=== PATIENT | female | born 1990 | race African-American/Black ===

== ENCOUNTER 2016-04-13 14:31 | Emergency (ER) | payer MEDICAID ==
[2016-06-05] MEDS ORDERED: PREN1CAP7 PO (14:29)
[2016-06-05] MEDS ORDERED: ACYC400T PO (14:29)
[2016-06-05] MEDS ORDERED: TERC20CR VAGINAL (14:39)
[2016-07-03] MEDS ORDERED: FERRTAB2 PO (11:14)
== END 2016-04-13 14:40 | disposition left against medical advice (07) ==
LOC: NED 14:31
DX: R68.89 Other general symptoms and signs (principal)
CPT/HCPCS: 99281

== ENCOUNTER 2016-04-16 17:40 | Emergency (ER) | payer MEDICAID ==
[2016-04-16 17:42] VITALS: BP 109/64; PULSE 104; RESP 15; TEMP 98; O2SAT 98
--- NOTE | 2016-04-16 19:03 | PD ---
HPI Chief Complaint Vaginal discharge associated with severe burning and itching Date Seen: Apr 16, 2016 Time Seen: 18:40 Travel History International Travel<30 Days: No Contact w/Intl Traveler<30Days: No Known Affected Area: No History of Present Illness HPI 25-year-old at 25 weeks and 3 days of gestation, EDC 07/27/16, patient presents to OB ED with complaint of vaginal discharge associated severe vaginal burning and itching for the last 3 days, patient denies cramping, contractions, vaginal bleeding and leakage of fluids. Patient reports presence of movement. Patient is unassigned, care is in [facility], patient just relocated to [facility] recently. care is significant for history of section 4 and twin gestation previous . A vaginal exam shows copious amount of whitish cottage cheese-like discharge consistent with yeast infection. Specimen is sent for wet prep profile. Para: 3 : 4 Miscarriage: 0 : 0 History Past Medical History Narrative Medical Denies Medical History: Denies Significant Hx Obstetric History Obstetric History delivery 3, twin 1 delivered Past Surgical History Narrative Surgical section 3, twin 1 delivered. Family History Narrative Family History Unremarkable Social History Alcohol Use: No Tobacco Use: Yes (ex-smoker, patient stated that she used to smoke marijuana) Substance Abuse: No Allergies-Medications (Allergen,Severity, Reaction): Coded Allergies: Tramadol (Verified Allergy, Unknown, hives, 04/16/16) Review of Systems Except as stated in HPI: all other systems reviewed are Neg Genitourinary: Discharge, Other (vaginal burning ,discharge and itching) Physical Exam Narrative GENERAL: Well-nourished, well-developed patient. SKIN: Warm and dry. HEAD: Normocephalic and atraumatic. EYES: No scleral icterus. No injection or drainage. ENT: No nasal drainage noted. Mucous membranes pink. Airway patent. NECK: Supple, trachea midline. No JVD. CARDIOVASCULAR: Regular rate and rhythm without murmurs, gallops, or rubs. RESPIRATORY: Breath sounds equal bilaterally. No accessory muscle use. BREASTS: Bilateral exam showed no masses , no retractions, no nipple discharge. ABDOMEN/GI: Abdomen soft, gravid, non-tender, bowel sounds present, no rebound, no guarding Gravid to 25 weeks size Fundal Height: 25 cm GENITOURINARY: External Genitalia: intact and normal in appearance BUS glands: Normal Cervix: Closed, long, posterior. There is copious amount of whitish cottage cheese-like vaginal discharge consistent with yeast infection. Specimen is sent for wet prep profile Dilatation: Closed Effacement: 30% Station: -3 Presentation: Cephalic Membranes: Intact Uterine Contractions: None FHT's: Category: one Baseline: 140s Reactive: Yes Variability: Moderate Decels: None EXTREMITIES: No cyanosis or edema. BACK: Nontender without obvious deformity. No CVA tenderness. NEUROLOGICAL: Awake and alert. Motor and sensory grossly within normal limits. Five out of 5 muscle strength in all muscle groups. Normal speech. Data Data Vital Signs Reviewed: Yes Orders Urinalysis - C+S If Indicated (04/16/16 18:20) Vital Signs (Adult) .ON ADMISSION (04/16/16 18:48) ^ Labor Status (04/16/16 18:48) ^ Non Stress Test (04/16/16 18:48) ^ Hydration (04/16/16 18:48) Wet Prep Profile (04/16/16 18:48) Miconazole Vag Supp (Monistat 3 Vag Supp (04/16/16 21:00) MDM Medical Record Reviewed: Yes Diagnosis Diagnosis: Primary Impression: 25 weeks gestation of Additional Impression: Candidal vulvovaginitis Disposition: 01 DISCHARGE HOME Condition: Stable Patient Instructions: General Instructions Additional Instructions: Patient is given miconazole vaginal suppository 200 milligrams to use intravaginally at bedtime 3 days. Patient is instructed to return to labor and delivery if increased symptoms, cramping, contractions, vaginal bleeding, leakage of fluids or decreased movements. Drink plenty of fluids. Monitor kick counts. Patient is given instructions on how to contact the office of care for women for continuation of her care. Pelvic rest. Departure Forms: Tests/Procedures Tyrel Mna MD Apr 16, 2016 19:03
[2016-04-16 19:19] LABS: BLOOD, URINE NEG (NEG); CALCIUM OXALATE CRYSTALS,URINE MOD /hpf; COMMENT (UR) CULT NOT INDICATED; CULTURE IF INDICATED CULT NOT INDICATED; GLUCOSE,URINE NEG (NEG); KETONE, URINE NEG (NEG); MUCUS URINE FEW /lpf (OCC); NITRITE,URINE NEG (NEG); PH, URINE 6.5 (5.0-8.5); SQUAMOUS EPITHELIAL CELL URINE 1 /hpf (0-5); URINE COLOR YELLOW (YELLW/STRAW)
[2016-04-16] MEDS ORDERED: TERCONAZOLE 80 MG VAGINAL SCH (21:00)
[2016-06-05] MEDS ORDERED: PREN1CAP7 PO (14:29)
[2016-06-05] MEDS ORDERED: ACYC400T PO (14:29)
[2016-06-05] MEDS ORDERED: TERC20CR VAGINAL (14:39)
[2016-07-03] MEDS ORDERED: FERRTAB2 PO (11:14)
== END 2016-04-16 20:04 | disposition home or self-care (01) ==
LOC: HOBED 17:40
DX: O98.812 Other maternal infectious and parasitic diseases complicating pregnancy, second trimester (principal); B37.3 Candidiasis of vulva and vagina; Z3A.25 25 weeks gestation of pregnancy
CPT/HCPCS: 81001; 87210; 99283

== ENCOUNTER 2016-09-29 07:37 | Observation (INO) | payer MEDICAID ==
[~2016-09-29] VITALS: Ht 165.1 cm; Wt 109.0 kg
[2016-09-29] VITALS (7 sets, daily range): BP systolic 93–132; BP diastolic 51–84; PULSE 76–100; RESP 16–20; TEMP 96.9–98.4; O2SAT 96–99
[~2016-09-29 07:37] MED LIST: ACYC400T PO; FERRTAB2 PO; PREN1CAP7 PO
[2016-09-29] MEDS ORDERED: SODIUM CHLOR 0.9% 1000 ML INJ 1,000 ML IV SCH (07:47)
--- NOTE | 2016-09-29 07:54 | PD ---
HPI Chief Complaint: Abdominal Pain Time Seen by Provider: 07:45 Travel History International Travel<30 days: No Contact w/Intl Traveler<30days: No Traveled to known affect area: No History of Present Illness HPI 25-year-old female complains of right upper quadrant abdominal pain and nausea vomiting. Patient states the symptoms started last night. Patient states that the pain is combination of cramping pain and sharp pain started at the right upper quadrant of the abdomen with radiation to right flank area. Patient has history of gallstone. Patient had gallbladder ultrasound and ERCP in the past in [place]. Patient refused surgery in the past. Patient states that she has intermittent symptoms for the past year. Patient denies any fever chills. Patient denies any headache. Patient denies any chest pain or shortness of breath. Patient denies any dysuria or frequency. Patient denies any vaginal discharge or bleeding. On a scale of 1-10 the pain is a 10. PFSH Past Medical History ?: Not LMP: 3 weeks ago Social History Alcohol Use: No Tobacco Use: No (ex-smoker, patient stated that she used to smoke marijuana) Substance Use: No Allergies-Medications (Allergen,Severity, Reaction): Coded Allergies: Morphine (Verified Allergy, Intermediate, Itching, 09/29/16) Tramadol (Verified Allergy, Unknown, hives, 07/13/16) Reported Meds & Prescriptions Reported Meds & Active Scripts Active No Active Prescriptions or Reported Medications Review of Systems General / Constitutional: No: Fever Eyes: No: Visual changes HENT: No: Headaches Cardiovascular: No: Chest Pain or Discomfort Respiratory: No: Shortness of Breath Gastrointestinal: Positive: Nausea, Vomiting, Abdominal Pain Genitourinary: No: Dysuria Musculoskeletal: No: Pain Skin: No Rash Neurologic: No: Weakness Psychiatric: No: Depression Endocrine: No: Polydipsia Hematologic/Lymphatic: No: Easy Bruising Physical Exam Narrative GENERAL: Well-nourished, well-developed patient. SKIN: Focused skin assessment warm/dry. HEAD: Normocephalic. EYES: No scleral icterus. No injection or drainage. NECK: Supple, trachea midline. No JVD or lymphadenopathy. CARDIOVASCULAR: Regular rate and rhythm without murmurs, gallops, or rubs. RESPIRATORY: Breath sounds equal bilaterally. No accessory muscle use. GASTROINTESTINAL: Abdomen soft, nondistended. Patient has moderate tenderness on palpation right upper quadrant of the abdomen. No rebound tenderness. No mass. MUSCULOSKELETAL: No cyanosis, or edema. BACK: Nontender without obvious deformity. No CVA tenderness. Neurologic exam normal. Data Data Last Documented VS Vital Signs Date Time Temp Pulse Resp B/P Pulse Ox O2 Delivery O2 Flow Rate FiO2 09/29/16 08:10 20 09/29/16 07:57 99 09/29/16 07:43 98.4 96 132/84 Orders Complete Blood Count With Diff (09/29/16 07:47) Comprehensive Metabolic Panel (09/29/16 07:47) Lipase (09/29/16 07:47) Prothrombin Time / Inr (Pt) (09/29/16 07:47) Act Partial Throm Time (Ptt) (09/29/16 07:47) Urinalysis - C+S If Indicated (09/29/16 07:47) Iv Access Insert/Monitor (09/29/16 07:47) Ecg Monitoring (09/29/16 07:47) Oximetry (09/29/16 07:47) Morphine Inj (Morphine Inj) (09/29/16 08:00) Ondansetron Inj (Zofran Inj) (09/29/16 08:00) Pantoprazole Inj (Protonix Inj) (09/29/16 08:00) Sodium Chlor 0.9% 1000 Ml Inj (Ns 1000 M (09/29/16 07:47) Ed Urine Pregnancytest Poc (09/29/16 07:47) Us Abdomen Gallbladder (09/29/16 07:48) Diphenhydramine Inj (Benadryl Inj) (09/29/16 08:15) Hydromorphone Pf Inj (Dilaudid Pf Inj) (09/29/16 08:45) Admit Order (Ed Use Only) (09/29/16 08:48) Labs Laboratory Tests Test 09/29/16 09/29/16 08:00 08:40 White Blood Count 6.8 TH/MM3 Red Blood Count 4.57 MIL/MM3 Hemoglobin 10.7 GM/DL Hematocrit 33.3 % Mean Corpuscular Volume 72.8 FL Mean Corpuscular Hemoglobin 23.4 PG Mean Corpuscular Hemoglobin 32.2 % Concent Red Cell Distribution Width 18.0 % Platelet Count 334 TH/MM3 Mean Platelet Volume 7.6 FL Neutrophils (%) (Auto) 52.1 % Lymphocytes (%) (Auto) 37.1 % Monocytes (%) (Auto) 6.2 % Eosinophils (%) (Auto) 4.3 % Basophils (%) (Auto) 0.3 % Neutrophils # (Auto) 3.6 TH/MM3 Lymphocytes # (Auto) 2.5 TH/MM3 Monocytes # (Auto) 0.4 TH/MM3 Eosinophils # (Auto) 0.3 TH/MM3 Basophils # (Auto) 0.0 TH/MM3 CBC Comment DIFF FINAL Differential Comment Prothrombin Time 9.9 SEC Prothromb Time International 0.9 RATIO Ratio Activated Partial 26.8 SEC Thromboplast Time Sodium Level 138 MEQ/L Potassium Level 3.7 MEQ/L Chloride Level 106 MEQ/L Carbon Dioxide Level 25.1 MEQ/L Anion Gap 7 MEQ/L Blood Urea Nitrogen 9 MG/DL Creatinine 0.69 MG/DL Estimat Glomerular Filtration 128 ML/MIN Rate Random Glucose 99 MG/DL Calcium Level 8.8 MG/DL Total Bilirubin 0.4 MG/DL Aspartate Amino Transf 31 U/L (AST/SGOT) Alanine Aminotransferase 34 U/L (ALT/SGPT) Alkaline Phosphatase 90 U/L Total Protein 7.0 GM/DL Albumin 3.3 GM/DL Lipase 65 U/L Urine Color LIGHT-YELLOW Urine Turbidity CLEAR Urine pH 6.5 Urine Specific [employer] 1.006 Urine Protein NEG mg/dL Urine Glucose (UA) NEG mg/dL Urine Ketones NEG mg/dL Urine Occult Blood NEG Urine Nitrite NEG Urine Bilirubin NEG Urine Urobilinogen LESS THAN 2.0 MG/DL Urine Leukocyte Esterase NEG Urine RBC LESS THAN 1 /hpf Urine WBC 1 /hpf Urine Squamous Epithelial 7 /hpf Cells Urine Mucus FEW /lpf Microscopic Urinalysis Comment CULT NOT INDICATED MDM Medical Decision Making Medical Screen Exam Complete: Yes Emergency Medical Condition: Yes Differential Diagnosis Differential diagnosis including acute cholecystitis, symptomatic cholelithiasis , colitis, UTI, pyelonephritis, nephrolithiasis. Narrative Course 25-year-old female with right upper quadrant abdominal pain, nausea vomiting and history of gallstone. Normal saline solution 1 25 cc an hour. Morphine 2 mg IV. Zofran 4 mg IV. Protonix 40 mg IV. Patient complains of itching after morphine. Benadryl 50 mg IV given. The itching got better and came back again. Solu-Medrol 125 mg IV. Pepcid 20 mg IV given. Diagnosis Primary Impression: Cholelithiasis Qualified Code: K80.20 - Calculus of gallbladder without cholecystitis without obstruction Additional Impression: Biliary colic Admitting Information Admitting Physician Requests: Admit Scripts No Active Prescriptions or Reported Meds Kain Robert MD Sep 29, 2016 07:54
[2016-09-29] MEDS ORDERED: PANTOPRAZOLE SODIUM 40 MG VIAL IVP ONE (08:00)
[2016-09-29] MEDS ORDERED: MORPHINE SULFATE 4 MG/ML INJ IV PUSH ONE (08:00)
[2016-09-29] MEDS ORDERED: ONDANSETRON HCL 4 MG/2 ML VIAL IVP ONE (08:00)
[2016-09-29] MEDS ORDERED: diphenhydrAMINE HCL 50 MG/ML VIAL IV PUSH ONE (08:15)
[2016-09-29 08:16] LABS: AUTOMATED NEUTROPHIL # 3.6 TH/MM3 (1.8-7.7); BASOPHIL % 0.3 % (0.0-2.0); EOSINOPHIL # 0.3 TH/MM3 (0-0.4); EOSINOPHIL % 4.3 % (0.0-4.0); HEMATOCRIT 33.3 % (35.0-46.0); HEMO FLAGS DIFF FINAL; LYMPH % 37.1 % (9.0-44.0); LYMPHOCYTE # 2.5 TH/MM3 (1.0-4.8); MEAN CELL VOLUME 72.8 FL (80.0-100.0); MEAN CORPUSCULAR HEMOGLOBIN 23.4 PG (27.0-34.0); MEAN CORPUSCULAR HGB CONC 32.2 % (32.0-36.0); MONO % 6.2 % (0.0-8.0); NEUT % 52.1 % (16.0-70.0); PLATELET COUNT 334 TH/MM3 (150-450); RED BLOOD COUNT 4.57 MIL/MM3 (4.00-5.30); WHITE BLOOD COUNT 6.8 TH/MM3 (4.0-11.0)
[2016-09-29 08:22] LABS: APTT (PATIENT) 26.8 SEC (24.3-30.1); INTERNATIONAL NORMALIZED RATIO 0.9 RATIO; PROTHROMBIN TIME - PATIENT 9.9 SEC (9.8-11.6)
[2016-09-29 08:33] LABS: ANION GAP 7 MEQ/L (5-15); BICARBONATE 25.1 MEQ/L (21.0-32.0); BLOOD UREA NITROGEN 9 MG/DL (7-18); CHLORIDE 106 MEQ/L (98-107); GLOMERULAR FILTRATION RATE 128 ML/MIN (>89); POTASSIUM 3.7 MEQ/L (3.5-5.1); SODIUM (NA) 138 MEQ/L (136-145)
[2016-09-29 08:34] LABS: ALT (GPT) 34 U/L (10-53); AST (GOT) 31 U/L (15-37)
[2016-09-29 08:36] LABS: ALKALINE PHOSPHATASE 90 U/L (45-117); TOTAL BILIRUBIN ADULT 0.4 MG/DL (0.2-1.0)
[2016-09-29] MEDS ORDERED: HYDROmorphone HCL PF 1 MG/ML VIAL IV PUSH ONE ×2 (08:45→11:45)
[2016-09-29 08:57] LABS: BLOOD, URINE NEG (NEG); COMMENT (UR) CULT NOT INDICATED; CULTURE IF INDICATED CULT NOT INDICATED; GLUCOSE,URINE NEG (NEG); KETONE, URINE NEG (NEG); MUCUS URINE FEW /lpf (OCC); NITRITE,URINE NEG (NEG); PH, URINE 6.5 (5.0-8.5); SQUAMOUS EPITHELIAL CELL URINE 7 /hpf (0-5); URINE COLOR LIGHT-YELLOW (YELLW/STRAW)
--- NOTE | 2016-09-29 09:00 | RADRPT ---
EXAM DATE/TIME: 09/29/2016 07:56 [facility] COMPARISON: No previous studies available for comparison. INDICATIONS : Right upper quadrant pain. MEDICAL HISTORY : Abdominal pain. SURGICAL HISTORY : section. ENCOUNTER: Initial ACUITY: 1 day PAIN SCORE: 10/10 LOCATION: Right upper quadrant MEASUREMENTS: LIVER: 15.3 cm length COMMON DUCT: 4 mm RIGHT KIDNEY: 11.0 x 5.4 x 4.9 cm FINDINGS: LIVER: Normal echotexture without focal lesion or ductal dilatation. The portal system is patent. No evidenc e of ascites. COMMON DUCT: No intraluminal mass or stone visualized. GALLBLADDER: Multiple stones are seen in the gallbladder. No gallbladder wall thickening. No fluid around the gall bladder. There is some sludge in the gallbladder. PANCREAS: The visualized portions are within normal limits. RIGHT KIDNEY: No evidence of hydronephrosis, stone, or mass. CONCLUSION: 1. Multiple stones in the gallbladder. 2. No biliary tract obstruction. Phu Romano MD on September 29, 2016 at 8:58 Board Certified Radiologist. This report was verified electronically.
[2016-09-29] MEDS ORDERED: SODIUM CHLORIDE 0.9% FLUSH 10 ML FLUSH IV FLUSH PRN ×2 (09:15→15:30)
[2016-09-29] MEDS ORDERED: FAMOTIDINE 20 MG/2 ML VIAL IV PUSH ONE (09:15)
[2016-09-29] MEDS ORDERED: methylPREDNISolone SOD SUCC 125 MG/2 ML VIAL IM ONE (09:15)
[2016-09-29] MEDS ORDERED: ceFAZolin 2 GM PREMIX 50 ML IV SCH (10:45)
[2016-09-29] MEDS ORDERED: ONDANSETRON HCL 4 MG/2 ML VIAL IV PRN (11:45)
[2016-09-29] MEDS ORDERED: SODIUM CHLORIDE 0.9% FLUSH 10 ML FLUSH IVF PRN (11:45)
[2016-09-29] MEDS ORDERED: ACETAMINOPHEN 325 MG TAB PO PRN (11:45)
[2016-09-29] MEDS: diphenhydrAMINE HCL 50 MG/ML VIAL IV PRN ×2 (13:37→19:48)
[2016-09-29] MEDS ORDERED: HYDROmorphone HCL PF 1 MG/ML VIAL IV PRN ×2 (13:45→15:00)
[2016-09-29] MEDS ORDERED: METOCLOPRAMIDE HCL 10 MG/2 ML VIAL IV PRN (15:30)
[2016-09-29] MEDS ORDERED: SCOPOLAMINE 1.5 MG PATCH T-DERMAL ONE (15:30)
[2016-09-29] MEDS ORDERED: metroNIDAZOLE 500 MG INJ 100 ML IV SCH ×2 (17:45→18:00)
[2016-09-29] MEDS: SODIUM CHLOR 0.9% 1000 ML INJ 1,000 ML IV SCH ×2 (17:54→23:51)
[2016-09-29] MEDS: ceFAZolin 2 GM PREMIX 50 ML IV SCH (17:54)
[2016-09-29] MEDS ORDERED: ACETAMINOPHEN 1000 MG/100 ML VIAL IV SCH (18:00)
[2016-09-29] MEDS ORDERED: PANTOPRAZOLE SODIUM 40 MG VIAL IV SCH (18:00)
[2016-09-29] MEDS: metroNIDAZOLE 500 MG INJ 100 ML IV SCH (19:50)
[2016-09-29] MEDS: URSODIOL 300 MG CAP PO SCH ×2 (19:50→21:41)
[2016-09-29] MEDS: ACETAMINOPHEN 1000 MG/100 ML VIAL IV SCH ×2 (19:50→23:51)
[2016-09-29] MEDS: HYDROmorphone HCL PF 1 MG/ML VIAL IV PUSH PRN ×2 (19:52→23:42)
[2016-09-29] MEDS ORDERED: SODIUM CHLORIDE 0.9% FLUSH 10 ML FLUSH IV FLUSH SCH ×2 (21:00)
[2016-09-30] VITALS: BP 104/63; PULSE 79; RESP 18; TEMP 97.5; O2SAT 98
[2016-09-30] MEDS: ceFAZolin 2 GM PREMIX 50 ML IV SCH (01:41)
[2016-09-30] MEDS: metroNIDAZOLE 500 MG INJ 100 ML IV SCH (03:00)
[2016-09-30] MEDS: ACETAMINOPHEN 1000 MG/100 ML VIAL IV SCH (05:11)
[2016-09-30] MEDS: diphenhydrAMINE HCL 50 MG/ML VIAL IV PRN (05:12)
[2016-09-30] MEDS: HYDROmorphone HCL PF 1 MG/ML VIAL IV PUSH PRN (05:12)
--- NOTE | 2016-09-30 07:04 | HHI.PR ---
Subjective Subjective Notes no acute issue, pain 4/10 with meds no vomiting Objective Vitals/I&O Vital Signs Date Time Temp Pulse Resp B/P Pulse Ox O2 Delivery O2 Flow Rate FiO2 09/30/16 00:00 97.5 79 18 104/63 98 09/29/16 20:51 21 Labs Laboratory Tests Test 09/29/16 09/29/16 08:00 08:40 White Blood Count 6.8 Red Blood Count 4.57 Hemoglobin 10.7 Hematocrit 33.3 Mean Corpuscular Volume 72.8 Mean Corpuscular Hemoglobin 23.4 Mean Corpuscular Hemoglobin 32.2 Concent Red Cell Distribution Width 18.0 Platelet Count 334 Mean Platelet Volume 7.6 Neutrophils (%) (Auto) 52.1 Lymphocytes (%) (Auto) 37.1 Monocytes (%) (Auto) 6.2 Eosinophils (%) (Auto) 4.3 Basophils (%) (Auto) 0.3 Neutrophils # (Auto) 3.6 Lymphocytes # (Auto) 2.5 Monocytes # (Auto) 0.4 Eosinophils # (Auto) 0.3 Basophils # (Auto) 0.0 CBC Comment DIFF FINAL Differential Comment Prothrombin Time 9.9 Prothromb Time International 0.9 Ratio Activated Partial 26.8 Thromboplast Time Sodium Level 138 Potassium Level 3.7 Chloride Level 106 Carbon Dioxide Level 25.1 Anion Gap 7 Blood Urea Nitrogen 9 Creatinine 0.69 Estimat Glomerular Filtration 128 Rate Random Glucose 99 Calcium Level 8.8 Total Bilirubin 0.4 Aspartate Amino Transf 31 (AST/SGOT) Alanine Aminotransferase 34 (ALT/SGPT) Alkaline Phosphatase 90 Total Protein 7.0 Albumin 3.3 Lipase 65 Urine Color LIGHT-YELLOW Urine Turbidity CLEAR Urine pH 6.5 Urine Specific [place] 1.006 Urine Protein NEG Urine Glucose (UA) NEG Urine Ketones NEG Urine Occult Blood NEG Urine Nitrite NEG Urine Bilirubin NEG Urine Urobilinogen LESS THAN 2.0 Urine Leukocyte Esterase NEG Urine RBC LESS THAN 1 Urine WBC 1 Urine Squamous Epithelial 7 Cells Urine Mucus FEW Microscopic Urinalysis Comment CULT NOT INDICATED Cardiovascular: Regular Lungs: Clear Abdomen: Other (soft, mild ttp ruq) A/P Assessment and Plan symptomatic cholelithiasis hx of gb pancreatitis and cbd stone, no cbd stone this admission PLAN pt does not want surgery pain control actigal low fat diet oob d/c planning today f/u with Rishi Hendrix MD Sep 30, 2016 07:04
[2016-09-30] MEDS ORDERED: SCOP1PAT2 T-DERMAL (07:22)
[2016-09-30] MEDS ORDERED: PERC7.5T13 PO (07:22)
[2016-09-30] MEDS ORDERED: URSO300C2 PO (07:22)
[2016-09-30] MEDS: SODIUM CHLOR 0.9% 1000 ML INJ 1,000 ML IV SCH (07:23)
--- NOTE | 2016-09-30 21:05 | MH ---
cc: CHAO WEEMS MD DATE OF ADMISSION 09/29/2016 CHIEF COMPLAINT Right upper quadrant abdominal pain. HISTORY OF PRESENT ILLNESS The patient is a 25-year-old female who presents with complaints of right upper quadrant abdominal pain. She states the pain started a few days ago and continued getting worse. The pain was initially located in the right upper quadrant in the epigastric area. It was sharp, it was 10/10, worse with movement, better with lying still. She came to the emergency department for further workup including ultrasound showing multiple gallstones in the gallbladder. Labs within normal limits. Surgery was consulted for further evaluation. On my exam the patient has relatively severe abdominal pain. The patient states that this has been persistent. She does have a previous history of gallstone pancreatitis requiring ERCP in [place] approximately one year ago and states this pain has recurred now since then. She states this episode is the worse, however, the epigastric pain is not as severe and there is no evidence of pancreatitis on this episode or common bile duct stone. At the time she refused laparoscopic cholecystectomy based on [employer] purposes. The patient does practice [employer] and states she is now wishing to have surgery. The patient complains of subjective fevers. Denies chills. Denies diarrhea or constipation. PAST MEDICAL HISTORY Gallstone pancreatitis. PAST SURGICAL HISTORY Denies any major abdominal surgery. MEDICATIONS See EMR. ALLERGIES MORPHINE, TRAMADOL, ZOFRAN. SOCIAL HISTORY Denies EtOH. Former smoker. History of THC. Denies current smoking. Denies IVDA. FAMILY HISTORY Denies diabetes or hypertension. REVIEW OF SYSTEMS GENERAL: Complains of subjective fevers. Denies malaise. HEENT: Denies eye pain, ear pain or scleral icterus. NECK: Denies swelling or pain. RESPIRATORY: Denies cough or wheeze. GI: Denies vomiting. Complains of nausea and abdominal pain. CARDIOVASCULAR: Denies chest pain or palpitations. : Denies dysuria, hematuria. ENDOCRINE: Denies polyuria, polydipsia. NEUROLOGIC: Denies weakness or numbness. PSYCH: Denies depression or change in mood. PHYSICAL EXAMINATION GENERAL: The patient no acute distress. VITAL SIGNS: Temperature 98.4, pulse 96, respirations 20, blood pressure 132/84, saturation 99% on room air. HEENT: PERRLA, pupils equal, round, reactive. No scleral icterus. NECK: Supple. Trachea midline. LUNGS: Bilateral expansion, clear. HEART: S1-S2 regular rhythm. ABDOMEN: Soft, positive tenderness to palpation right upper quadrant. No rebound. Positive guarding. EXTREMITIES: Warm, well-perfused. INTEGUMENT: No obvious masses or lesions. BACK: Normal curvature. No step-off. PSYCH: Good insight, good judgment. LABORATORY AND DIAGNOSTIC DATA WBC 6.8, hemoglobin 10.7, hematocrit 33.3, platelets 334. Sodium 138, potassium 3.7, chloride 106, BUN 9, creatinine 0.69, AST 31, ALT 34, T bili 0.4. INR 0.9. The gallbladder ultrasound significant amount of gallstones. No evidence of biliary common duct dilation or common duct stones. ASSESSMENT The patient is a 25-year-old female with right upper quadrant pain, symptomatic cholelithiasis, previous hx of gallstone pancreatitis. Patient refusing surgery due to practices [facility]. PLAN Full clinical, radiologic, laboratory workup. The patient with right upper quadrant pain consistent with symptomatic cholelithiasis. A long discussion with the patient regarding the need for laparoscopic cholecystectomy. Given the patient's previous history of gallstone pancreatitis she is at risk for recurrent common bile duct stones. I recommend undergoing laparoscopic cholecystectomy. The patient does have severe significant pain that is only partially controlled with IV pain medication. She has a normal lipase and normal LFTs and T-bili as well. The patient at this time has significant symptomatic cholelithiasis. At this point we will admit the patient for observation, pain control, IV fluids. Will start low-fat diet when able to tolerate. Again, discussed with the patient in detail. MD DALE Pascal/YORDY /8:31 PM /8:44 PM LINDA
== END 2016-09-30 08:51 | disposition home or self-care (01) ==
LOC: NEPC 07:37 → INTOOBSV 08:50 → NEDA 08:50 → N07A 12:26 → UNDODISIN 09-30 08:51
PROVIDERS: ADMIT Surgery; ATTEND Surgery
DX: K80.20 Calculus of gallbladder without cholecystitis without obstruction (principal); R50.9 Fever, unspecified; Z87.891 Personal history of nicotine dependence
CPT/HCPCS: 76705; 80053; 81001; 83690; 84703; 85025; 85610; 85730; 96361; 96374; 96375; 99285; C9113; G0378; J0131; J0690; J1170; J1200; J2270; J2405; J2930; J7030

== ENCOUNTER 2016-10-11 20:31 | Observation (INO) | payer MEDICAID ==
[~2016-10-11] VITALS: Ht 165.1 cm; Wt 100.0 kg
[~2016-10-11 20:31] MED LIST changes: -ACYC400T PO; -FERRTAB2 PO; +PERC7.5T13 PO; -PREN1CAP7 PO; +SCOP1PAT2 T-DERMAL; +URSO300C2 PO
[2016-10-11 20:54] VITALS: BP 150/87; PULSE 110; RESP 18; TEMP 98.6; O2SAT 95
[2016-10-11] MEDS ORDERED: SODIUM CHLOR 0.9% 1000 ML INJ 1,000 ML IV SCH (21:35)
[2016-10-11] MEDS ORDERED: LIDOCAINE VISCOUS 2% SOLN 15 ML UDC PO ONE (21:45)
[2016-10-11] MEDS ORDERED: ONDANSETRON HCL 4 MG/2 ML VIAL IVP ONE (21:45)
[2016-10-11] MEDS ORDERED: SODIUM CHLORIDE 0.9% FLUSH 10 ML FLUSH IV FLUSH PRN (21:45)
[2016-10-11] MEDS ORDERED: KETOROLAC TROMETHAMINE 30 MG/ML (IVP) VIAL IVP ONE (21:45)
[2016-10-11] MEDS ORDERED: ALUMINUM/MAGNESIUM/SIMETH 30 ML CUP PO ONE (21:45)
[2016-10-11 22:17] VITALS: TEMP 97.9
[2016-10-11 22:19] LABS: AUTOMATED NEUTROPHIL # 7.4 TH/MM3 (1.8-7.7); BASOPHIL # 0.1 TH/MM3 (0-0.2); BASOPHIL % 0.7 % (0.0-2.0); EOSINOPHIL # 0.3 TH/MM3 (0-0.4); EOSINOPHIL % 2.4 % (0.0-4.0); HEMATOCRIT 33.8 % (35.0-46.0); HEMO FLAGS DIFF FINAL; LYMPH % 23.9 % (9.0-44.0); LYMPHOCYTE # 2.6 TH/MM3 (1.0-4.8); MEAN CELL VOLUME 75.2 FL (80.0-100.0); MEAN CORPUSCULAR HEMOGLOBIN 23.9 PG (27.0-34.0); MEAN CORPUSCULAR HGB CONC 31.7 % (32.0-36.0); MONO % 5.7 % (0.0-8.0); NEUT % 67.3 % (16.0-70.0); PLATELET COUNT 340 TH/MM3 (150-450); RED BLOOD COUNT 4.49 MIL/MM3 (4.00-5.30)
[2016-10-11] MEDS ORDERED: HYDROmorphone HCL PF 1 MG/ML VIAL IV PUSH ONE (22:30)
[2016-10-11 22:35] LABS: ALKALINE PHOSPHATASE 85 U/L (45-117); BETA HCG QUANT LESS THAN 1 MIU/ML (0-5); TOTAL BILIRUBIN ADULT 0.3 MG/DL (0.2-1.0)
[2016-10-11 22:47] LABS: ALT (GPT) 28 U/L (10-53); ANION GAP 8 MEQ/L (5-15); AST (GOT) 28 U/L (15-37); BICARBONATE 25.5 MEQ/L (21.0-32.0); BLOOD UREA NITROGEN 8 MG/DL (7-18); CHLORIDE 108 MEQ/L (98-107); GLOMERULAR FILTRATION RATE 100 ML/MIN (>89); SODIUM (NA) 141 MEQ/L (136-145)
[2016-10-11] MEDS ORDERED: diphenhydrAMINE HCL 50 MG/ML VIAL IV PUSH ONE (23:15)
[2016-10-11 23:36] LABS: POTASSIUM 4.1 MEQ/L (3.5-5.1)
--- NOTE | 2016-10-11 23:50 | RADRPT ---
EXAM DATE/TIME: 10/11/2016 23:05 [facility] COMPARISON: US ABDOMEN - GALLBLADDER, September 29, 2016, 7:56. INDICATIONS : Abdominal pain. MEDICAL HISTORY : Gallstones. Gastrointestinal disorder. SURGICAL HISTORY : section. Tubal ligation. ERCP. ENCOUNTER: Initial ACUITY: 1 day PAIN SCORE: 7/10 LOCATION: Right upper quadrant MEASUREMENTS: LIVER: 15.0 cm length COMMON DUCT: 6 mm RIGHT KIDNEY: 9.0 x 4.6 x 4.4 cm FINDINGS: LIVER: Normal echotexture without focal lesion or ductal dilatation. COMMON DUCT: No intraluminal mass or stone visualized. GALLBLADDER: There is some echogenic and is in the gallbladder with gallbladder wall thickening measured at 5 mm. These findings are stable compared to the prior exam. No fluid is seen in the gallbladder. PANCREAS: The visualized portions are within normal limits. RIGHT KIDNEY: No evidence of hydronephrosis, stone, or mass. CONCLUSION: 1. Gallstones with gallbladder wall thickening characteristic of chronic gallbladder disease. 2. No evidence of biliary tract obstruction. 3. No significant changes compared to the prior study. Phu Romano MD on October 11, 2016 at 23:46 Board Certified Radiologist. This report was verified electronically.
[2016-10-12] VITALS (8 sets, daily range): BP systolic 91–103; BP diastolic 54–68; PULSE 74–90; RESP 16–18; TEMP 97.5–97.8; O2SAT 96–100
[2016-10-12 00:37] LABS: BLOOD, URINE NEG (NEG); COMMENT (UR) CULT NOT INDICATED; CULTURE IF INDICATED CULT NOT INDICATED; GLUCOSE,URINE NEG (NEG); HYALINE CAST, URINE 1 /lpf (RARE); KETONE, URINE NEG (NEG); MUCUS URINE FEW /lpf (OCC); NITRITE,URINE NEG (NEG); SQUAMOUS EPITHELIAL CELL URINE <1 /hpf (0-5); URINE COLOR YELLOW (YELLW/STRAW)
--- NOTE | 2016-10-12 00:38 | PD ---
HPI Chief Complaint: Abdominal Pain Time Seen by Provider: 21:35 Travel History International Travel<30 days: No Contact w/Intl Traveler<30days: No Traveled to known affect area: No History of Present Illness HPI Patient is 25 years old. Patient reports 5 hours of abdominal pain. It's primarily located in the right upper quadrant. It's worse with palpation. Vomiting and nausea reported. Last oral intake was a microwave burrito. No fever. She has a history of gallbladder stones. She was recently admitted for intractable pain due to cholelithiasis/biliary colic. PFSH Past Medical History Cancer: No Cardiovascular Problems: No Endocrine: No Gastrointestinal Disorders: Yes (GALLSTONES) Genitourinary: No Immune Disorder: No Musculoskeletal: No Neurologic: No Psychiatric: No Reproductive: No Respiratory: No Influenza Vaccination: Yes ?: Not LMP: SEPTEMBER 2016 : 3 Para: 5 Past Surgical History Section: Yes (X3) Gynecologic Surgery: Yes (c section x 4, tubes tied) Social History Alcohol Use: No Tobacco Use: No (ex-smoker, patient stated that she used to smoke marijuana) Substance Use: No Allergies-Medications (Allergen,Severity, Reaction): Coded Allergies: Zofran (Verified Allergy, Severe, Itching, 10/11/16) Morphine (Verified Allergy, Intermediate, Itching, 10/11/16) Tramadol (Verified Allergy, Unknown, hives, 10/11/16) Reported Meds & Prescriptions Reported Meds & Active Scripts Active No Active Prescriptions or Reported Medications Review of Systems Except as stated in HPI: all other systems reviewed are Neg Physical Exam Narrative GENERAL: 25-year-old female mild to moderate distress secondary to pain SKIN: Focused skin assessment warm/dry. HEAD: Atraumatic. Normocephalic. EYES: Pupils equal and round. No scleral icterus. No injection or drainage. ENT: No nasal bleeding or discharge. Mucous membranes pink and moist. NECK: Trachea midline. No JVD. CARDIOVASCULAR: Regular rate and rhythm. No murmur appreciated. RESPIRATORY: No accessory muscle use. Clear to auscultation. Breath sounds equal bilaterally. GASTROINTESTINAL: Soft. Tenderness palpation right upper quadrant. MUSCULOSKELETAL: No obvious deformities. No clubbing. No cyanosis. No edema. NEUROLOGICAL: Awake and alert. No obvious cranial nerve deficits. Motor grossly within normal limits. Normal speech. PSYCHIATRIC: Appropriate mood and affect; insight and judgment normal. Data Data Last Documented VS Vital Signs Date Time Temp Pulse Resp B/P Pulse Ox O2 Delivery O2 Flow Rate FiO2 10/11/16 22:17 97.9 10/11/16 20:54 110 18 150/87 95 Room Air Vital signs reviewed Orders Beta Hcg (Quant/Titer) (10/11/16 21:35) Complete Blood Count With Diff (10/11/16 21:35) Comprehensive Metabolic Panel (10/11/16 21:35) Lipase (10/11/16 21:35) Urinalysis - C+S If Indicated (10/11/16 21:35) Iv Access Insert/Monitor (10/11/16 21:35) Ecg Monitoring (10/11/16 21:35) Oximetry (10/11/16 21:35) Ondansetron Inj (Zofran Inj) (10/11/16 21:45) Sodium Chlor 0.9% 1000 Ml Inj (Ns 1000 M (10/11/16 21:35) Sodium Chloride 0.9% Flush (Ns Flush) (10/11/16 21:45) Ketorolac Inj (Toradol Inj) (10/11/16 21:45) Al-Mag Hy-Si 40-40-4 Mg/Ml Liq (Mag-Al P (10/11/16 21:45) Lidocaine 2% Viscous (Xylocaine 2% Visco (10/11/16 21:45) Ed Urine Pregnancytest Poc (10/11/16 21:35) Us Abdomen Gallbladder (10/11/16 ) Hydromorphone Pf Inj (Dilaudid Pf Inj) (10/11/16 22:30) Diphenhydramine Inj (Benadryl Inj) (10/11/16 23:15) Hydromorphone Pf Inj (Dilaudid Pf Inj) (10/12/16 00:45) Admit Order (Ed Use Only) (10/12/16 00:48) Labs Laboratory Tests Test 10/11/16 10/12/16 21:42 00:10 White Blood Count 11.0 TH/MM3 Red Blood Count 4.49 MIL/MM3 Hemoglobin 10.7 GM/DL Hematocrit 33.8 % Mean Corpuscular Volume 75.2 FL Mean Corpuscular Hemoglobin 23.9 PG Mean Corpuscular Hemoglobin 31.7 % Concent Red Cell Distribution Width 18.0 % Platelet Count 340 TH/MM3 Mean Platelet Volume 8.3 FL Neutrophils (%) (Auto) 67.3 % Lymphocytes (%) (Auto) 23.9 % Monocytes (%) (Auto) 5.7 % Eosinophils (%) (Auto) 2.4 % Basophils (%) (Auto) 0.7 % Neutrophils # (Auto) 7.4 TH/MM3 Lymphocytes # (Auto) 2.6 TH/MM3 Monocytes # (Auto) 0.6 TH/MM3 Eosinophils # (Auto) 0.3 TH/MM3 Basophils # (Auto) 0.1 TH/MM3 CBC Comment DIFF FINAL Differential Comment Sodium Level 141 MEQ/L Potassium Level 4.1 MEQ/L Chloride Level 108 MEQ/L Carbon Dioxide Level 25.5 MEQ/L Anion Gap 8 MEQ/L Blood Urea Nitrogen 8 MG/DL Creatinine 0.85 MG/DL Estimat Glomerular Filtration 100 ML/MIN Rate Random Glucose 81 MG/DL Calcium Level 8.7 MG/DL Total Bilirubin 0.3 MG/DL Aspartate Amino Transf 28 U/L (AST/SGOT) Alanine Aminotransferase 28 U/L (ALT/SGPT) Alkaline Phosphatase 85 U/L Total Protein 7.0 GM/DL Albumin 3.2 GM/DL Lipase 80 U/L Human Chorionic Gonadotropin, LESS THAN 1 Quant MIU/ML Urine Color YELLOW Urine Turbidity CLEAR Urine pH 6.0 Urine Specific [place] 1.026 Urine Protein NEG mg/dL Urine Glucose (UA) NEG mg/dL Urine Ketones NEG mg/dL Urine Occult Blood NEG Urine Nitrite NEG Urine Bilirubin NEG Urine Urobilinogen LESS THAN 2.0 MG/DL Urine Leukocyte Esterase NEG Urine RBC 1 /hpf Urine WBC 2 /hpf Urine Squamous Epithelial <1 /hpf Cells Urine Hyaline Casts 1 /lpf Urine Mucus FEW /lpf Microscopic Urinalysis Comment CULT NOT INDICATED MDM Medical Decision Making Medical Screen Exam Complete: Yes Emergency Medical Condition: Yes Medical Record Reviewed: Yes Differential Diagnosis Constipation, Gastritis, Acute Cholecystitis, Biliary Colic, Pancreatitis, TAYLOR , Hepatitis, Bowel Obstruction, Cystitis, Mesenteric Ischemia, AAA, Appendicitis , Renal Stone/Hydronephrosis, GERD, perforated viscous Narrative Course CBC & BMP Diagram 10/11/16 21:42 LFTs normal Lipase normal Beta hCG less than 1 Right upper quadrant ultrasound reveals gallstones with gallbladder wall thickening characteristic of chronic gallbladder disease. There is no evidence of biliary tract obstruction. No significant change in comparison with a prior study. Patient has received Dilaudid with good effect. Patient required Benadryl for itching shortly thereafter. Last 24 hours Impressions Gall Bladder Ultrasound 10/11/16 0000 Signed Impressions: Service Date/Time: Tuesday, October 11, 2016 23:05 - CONCLUSION: 1. Gallstones with gallbladder wall thickening characteristic of chronic gallbladder disease. 2. No evidence of biliary tract obstruction. 3. No significant changes compared to the prior study. Phu Romano MD This case was discussed with Dr. Ji who is agreeable for admission discussion about possible surgical intervention. Patient agreeable to plan. Diagnosis Primary Impression: Cholelithiasis Qualified Code: K80.20 - Calculus of gallbladder without cholecystitis without obstruction Additional Impressions: Biliary colic Intractable abdominal pain Admitting Information Admitting Physician Requests: Observation Scripts No Active Prescriptions or Reported Meds Jamaal Oh MD Oct 12, 2016 00:38
[2016-10-12] MEDS ORDERED: HYDROmorphone HCL PF 1 MG/ML VIAL IV PUSH ONE (00:45)
[2016-10-12] MEDS ORDERED: diphenhydrAMINE HCL 50 MG/ML VIAL IV PUSH ONE ×2 (01:30→03:00)
[2016-10-12] MEDS ORDERED: SODIUM CHLORIDE 0.9% FLUSH 10 ML FLUSH IVF PRN (03:45)
[2016-10-12] MEDS: SODIUM CHLOR 0.9% 1000 ML INJ 1,000 ML IV SCH ×2 (04:08→11:18)
[2016-10-12] MEDS: HYDROmorphone HCL PF 1 MG/ML VIAL IV PRN ×3 (05:20→11:30)
[2016-10-12] MEDS: diphenhydrAMINE HCL 50 MG/ML VIAL IV PUSH PRN ×2 (05:51→11:29)
[2016-10-12] MEDS ORDERED: SODIUM CHLORIDE 0.9% FLUSH 10 ML FLUSH IV FLUSH SCH ×2 (09:00→21:00)
[2016-10-12] MEDS ORDERED: SODIUM CHLORIDE 0.9% FLUSH 10 ML FLUSH IV FLUSH PRN (10:00)
[2016-10-13] MEDS ORDERED: PANTOPRAZOLE SOD 40 MG DELAYED RELEASE TAB PO SCH (09:00)
== END 2016-10-12 16:32 | disposition home or self-care (01) ==
LOC: NEDAMB 20:31 → INTOOBSV 10-12 00:50 → NEDA 10-12 00:50 → NEPFCDU 10-12 04:21 → UNDODISIN 10-12 16:32
PROVIDERS: ADMIT Surgery; ATTEND Surgery
DX: K80.20 Calculus of gallbladder without cholecystitis without obstruction (principal)
CPT/HCPCS: 76705; 80053; 81001; 83690; 84702; 84703; 85025; 96365; 96375; 96376; 99285; G0378; J1170; J1200; J1885; J2405; J7030

== ENCOUNTER 2016-10-19 13:15 | Emergency (ER) | payer MEDICAID ==
[~2016-10-19] VITALS: Ht 165.1 cm; Wt 100.0 kg
[2016-10-19 13:23] VITALS: BP 144/77; PULSE 126; RESP 20; TEMP 98.6; O2SAT 100
--- NOTE | 2016-10-19 13:35 | PD ---
Physical Exam Time Seen by Provider: 13:34 Narrative 25 y/o female with known cholelithiasis, admitted twice this month for same, presents with RUQ abdominal pain which started today. Vital signs reviewed. Seen at triage desk. Awaiting bed placement. Data Data Last Documented VS Vital Signs Date Time Temp Pulse Resp B/P Pulse Ox O2 Delivery O2 Flow Rate FiO2 10/19/16 13:23 98.6 126 20 144/77 100 Room Air [facility] Medical Record Reviewed: Yes Supervised Visit with JORY: No Scripts No Active Prescriptions or Reported Meds Zak Eldridge Oct 19, 2016 13:35
--- NOTE | 2016-10-19 15:18 | PD ---
HPI . RUQ pain Chief Complaint: Abdominal Pain Time Seen by Provider: 15:15 Travel History International Travel<30 days: No Contact w/Intl Traveler<30days: No Traveled to known affect area: No History of Present Illness HPI 25-year-old female with history of cholelithiasis here with complaints of right upper quadrant pain since about 4:56 AM this morning. Patient tells me that she had a sudden onset of abdominal pain in the right upper quadrant that is radiating to her back. She admits to history of gallstones and tells me that she has an appointment with surgeon next week, however cannot wait until then. She rates the pain as 10/10. She admits to some nausea and tells me that she vomited once this morning. She has no other specific complaints. PFSH Past Medical History Cancer: No Cardiovascular Problems: No Cerebrovascular Accident: No Diminished Hearing: No Endocrine: No Gastrointestinal Disorders: Yes (GALLSTONES) Genitourinary: No Immune Disorder: No Kidney Stones: No Musculoskeletal: No Neurologic: No Psychiatric: No Reproductive: No Respiratory: No Migraines: No Renal Failure: Yes Seizures: No Tetanus Vaccination: > 5 Years Influenza Vaccination: Yes ?: Not LMP: 2 weeks ago : 3 Para: 5 Past Surgical History Abdominal Surgery: No Cardiac Surgery: No Section: Yes (X3) Ear Surgery: No Endocrine Surgery: No Eye Surgery: No Genitourinary Surgery: No Gynecologic Surgery: Yes ( x 3/tubal ligation) Oral Surgery: No Thoracic Surgery: No Other Surgery: Yes (ERCP) Social History Alcohol Use: No Tobacco Use: No Substance Use: No Allergies-Medications (Allergen,Severity, Reaction): Coded Allergies: Zofran (Verified Allergy, Severe, Itching, 10/19/16) Morphine (Verified Allergy, Intermediate, Itching, 10/19/16) Tramadol (Verified Allergy, Unknown, hives, 10/19/16) Reported Meds & Prescriptions Reported Meds & Active Scripts Active No Active Prescriptions or Reported Medications Review of Systems General / Constitutional: No: Fever Eyes: No: Visual changes HENT: No: Headaches Cardiovascular: No: Chest Pain or Discomfort Respiratory: No: Shortness of Breath Gastrointestinal: Positive: Nausea, Vomiting, Abdominal Pain Genitourinary: No: Dysuria Musculoskeletal: No: Pain Skin: No Rash Neurologic: No: Weakness Psychiatric: No: Depression Endocrine: No: Polydipsia Hematologic/Lymphatic: No: Easy Bruising Physical Exam Narrative GENERAL: AAO x 3, no acute distress, Well-nourished, well-developed patient. SKIN: Warm and dry. No visible rashes or bruising. HEAD: Normocephalic and atraumatic. EYES: No scleral icterus. No injection or drainage. EOM intact, PERRLA ENT: No nasal drainage noted. Mucous membranes pink. Airway patent. moist mucous membranes NECK: Supple, trachea midline. No JVD. CARDIOVASCULAR: Regular rate and rhythm without murmurs, gallops, or rubs. RESPIRATORY: Breath sounds equal bilaterally. No accessory muscle use. No rhonchi or rales. GASTROINTESTINAL: Abdomen soft, nondistended, + tenderness to RUQ with deep palpation EXTREMITIES: No cyanosis or edema. BACK: Nontender without obvious deformity. NEURO: CN II-12 intact, director gift strength normal b/l, UE and LE 5/5, no focal deficits PSYCH: AAO x 3, normal affect. Data Data Last Documented VS Vital Signs Date Time Temp Pulse Resp B/P Pulse Ox O2 Delivery O2 Flow Rate FiO2 10/19/16 13:23 98.6 126 20 144/77 100 Room Air Orders Complete Blood Count With Diff (10/19/16 14:26) Comprehensive Metabolic Panel (10/19/16 14:26) Lipase (10/19/16 14:26) Urinalysis - C+S If Indicated (10/19/16 14:26) Ed Urine Pregnancytest Poc (10/19/16 14:26) Us Abdomen Gallbladder (10/19/16 15:14) Prochlorperazine Inj (Compazine Inj) (10/19/16 15:30) Ketorolac Inj (Toradol Inj) (10/19/16 15:30) MDM Medical Decision Making Medical Screen Exam Complete: Yes Emergency Medical Condition: Yes Medical Record Reviewed: Yes Differential Diagnosis Cholelithiasis, cholecystitis, less likely appendicitis Narrative Course 25-year-old female here with what appears to be a cholelithiasis possible cholecystitis. Labs have already been ordered. Ultrasound ordered. Patient given toradol and compazine here in the ED. She is allergic to Zofran, Tramadol and Morphine. 1605: I was notified by our nurse that patient was very upset that she was only given Toradol for her pain. She told our nurse that Toradol does not work for her. I looked her up in the controlled substance database and patient has received 80 oxycodone pills in the month of September alone. She desires to leave AMA. Risks discussed with patient and she still decided to leave. Diagnosis Primary Impression: Left against medical advice Scripts No Active Prescriptions or Reported Meds Disposition: AGAINST MEDICAL ADVICE Condition: Stable Kanchan Joshi Oct 19, 2016 15:18
[2016-10-19] MEDS ORDERED: KETOROLAC TROMETHAMINE 30 MG/ML (IVP) VIAL IV PUSH ONE (15:30)
[2016-10-19] MEDS ORDERED: PROCHLORPERAZINE INJ 10 MG/2 ML VIAL IV PUSH ONE (15:30)
[2016-10-19 16:50] LABS: ALKALINE PHOSPHATASE 89 U/L (45-117); TOTAL BILIRUBIN ADULT 0.4 MG/DL (0.2-1.0)
[2016-10-19 16:57] LABS: ALT (GPT) 26 U/L (10-53); ANION GAP 6 MEQ/L (5-15); AST (GOT) 31 U/L (15-37); BICARBONATE 25.6 MEQ/L (21.0-32.0); BLOOD UREA NITROGEN 6 MG/DL (7-18); CHLORIDE 107 MEQ/L (98-107); GLOMERULAR FILTRATION RATE 116 ML/MIN (>89); SODIUM (NA) 139 MEQ/L (136-145)
--- NOTE | 2016-10-20 08:43 | RADRPT ---
EXAM DATE/TIME: 10/19/2016 15:25 [facility] COMPARISON: US ABDOMEN - GALLBLADDER, September 29, 2016, 7:56. US ABDOMEN - GALLBLADDER, October 11, 2016, 23:05. INDICATIONS : Right upper quadrant pain. MEDICAL HISTORY : Cholelithiasis. Renal failure. Gastrointestinal disorder. SURGICAL HISTORY : section. Tubal ligation. ERCP. ENCOUNTER: [facility] ACUITY: 1 day PAIN SCORE: 7/10 LOCATION: Left upper chest MEASUREMENTS: LIVER: 15.9 cm length COMMON DUCT: 7 mm RIGHT KIDNEY: 10.6 x 4.9 x 4.7 cm FINDINGS: LIVER: Normal echotexture without focal lesion or ductal dilatation. COMMON DUCT: No intraluminal mass or stone visualized. GALLBLADDER: Contracted with stones. PANCREAS: The visualized portions are within normal limits. RIGHT KIDNEY: No evidence of hydronephrosis, stone, or mass. CONCLUSION: No change from prior exam. Gallbladder contracted with gallstones present Chase Mojica MD on October 20, 2016 at 8:39 Board Certified Radiologist. This report was verified electronically.
== END 2016-10-19 16:10 | disposition left against medical advice (07) ==
LOC: NEPC 13:15
DX: R11.2 Nausea with vomiting, unspecified (principal); K80.20 Calculus of gallbladder without cholecystitis without obstruction; Z88.5 Allergy status to narcotic agent; Z88.8 Allergy status to other drugs, medicaments and biological substances
CPT/HCPCS: 76705; 80053; 83690; 96374; 96375; 99284; J0780; J1885

== ENCOUNTER 2016-11-08 05:38 | Emergency (ER) | payer MEDICAID ==
[~2016-11-08] VITALS: Ht 165.1 cm; Wt 100.0 kg
[2016-11-08 05:56] VITALS: BP 156/87; PULSE 94; RESP 22; TEMP 97.8; O2SAT 100
[2016-11-08] MEDS ORDERED: SODIUM CHLOR 0.9% 1000 ML INJ 1,000 ML IV SCH (06:09)
[2016-11-08] MEDS ORDERED: METOCLOPRAMIDE HCL 10 MG/2 ML VIAL IV PUSH ONE (06:15)
[2016-11-08] MEDS ORDERED: HYDROmorphone HCL PF 1 MG/ML VIAL IV PUSH ONE (06:15)
[2016-11-08] MEDS ORDERED: SODIUM CHLORIDE 0.9% FLUSH 10 ML FLUSH IV FLUSH PRN (06:15)
[2016-11-08 06:42] LABS: AUTOMATED NEUTROPHIL # 5.1 TH/MM3 (1.8-7.7); BASOPHIL # 0.1 TH/MM3 (0-0.2); BASOPHIL % 0.8 % (0.0-2.0); EOSINOPHIL # 0.2 TH/MM3 (0-0.4); EOSINOPHIL % 2.8 % (0.0-4.0); HEMATOCRIT 34.2 % (35.0-46.0); HEMO FLAGS DIFF FINAL; LYMPH % 32.1 % (9.0-44.0); LYMPHOCYTE # 2.8 TH/MM3 (1.0-4.8); MEAN CELL VOLUME 74.6 FL (80.0-100.0); MEAN CORPUSCULAR HEMOGLOBIN 24.4 PG (27.0-34.0); MEAN CORPUSCULAR HGB CONC 32.6 % (32.0-36.0); MONO % 6.5 % (0.0-8.0); NEUT % 57.8 % (16.0-70.0); PLATELET COUNT 327 TH/MM3 (150-450); RED BLOOD COUNT 4.58 MIL/MM3 (4.00-5.30); RED CELL DISTRIBUTION WIDTH 15.1 % (11.6-17.2); WHITE BLOOD COUNT 8.8 TH/MM3 (4.0-11.0)
--- NOTE | 2016-11-08 06:52 | PD ---
HPI Chief Complaint: Abdominal Pain Time Seen by Provider: 05:53 Travel History International Travel<30 days: No Contact w/Intl Traveler<30days: No Traveled to known affect area: No History of Present Illness HPI The patient is a 25 year old female who presents to the [facility] emergency department with a history of abdominal pain that recurred yesterday. The patient has a history of chronic gallbladder wall thickening with gallstones and a prior history of gallstone related pancreatitis in 2016. The patient has been seen and admitted regarding this in [place] and on one occasion here. The patient was admitted by the surgeon, Dr. Ji and scheduled for laboratory cholecystectomy, however the patient changed her mind. She reports that she tried to make an appointment to follow-up as an outpatient with Dr. Ji, however she was told that she needed a referral. She does report having insurance, however she denies having a primary care physician. The patient reports that the pain yesterday resolved on its own and then recurred again today at 2 AM. She reports that she last ate chicken fries at 11 PM. She reports that she tried taking ibuprofen and Tylenol without any relief. She reports the pain is present in the right upper quadrant of the abdomen and is severe and constant. She reports that the pain gets worse with lying flat or taking a deep breath. She reports that the pain is sharp in character. The patient reports having nausea and vomiting times one prior to arrival. On review of systems, she denies any known fevers, cough, congestion, neck pain, chest pain, shortness of breath, diarrhea, urinary symptoms, or neurologic symptoms. [facility] Past Medical History Narrative Medical The patient's past medical history is significant for gallstone pancreatitis Cancer: No Cardiovascular Problems: No Cerebrovascular Accident: No Diminished Hearing: No Endocrine: No Gastrointestinal Disorders: Yes (GALLSTONES) Genitourinary: No Immune Disorder: No Kidney Stones: No Musculoskeletal: No Neurologic: No Psychiatric: No Reproductive: No Respiratory: No Migraines: No Renal Failure: Yes Seizures: No Tetanus Vaccination: Unknown ?: Not LMP: 11/04/16 : 4 Para: 5 Tubal Ligation: Yes Past Surgical History Narrative Surgical The patient's past surgical history is significant for a , ERCP for stone removal in [place] related to gallstone pancreatitis, and bilateral tubal ligation. Abdominal Surgery: No Cardiac Surgery: No Section: Yes (X3) Ear Surgery: No Endocrine Surgery: No Eye Surgery: No Genitourinary Surgery: No Gynecologic Surgery: Yes ( x 3/tubal ligation) Oral Surgery: No Thoracic Surgery: No Other Surgery: Yes (ERCP) Social History Alcohol Use: No Tobacco Use: No Substance Use: No Allergies-Medications (Allergen,Severity, Reaction): Coded Allergies: ondansetron (Unverified Allergy, Severe, Itching, 11/08/16) PT DENIES morphine (Unverified Allergy, Intermediate, Itching, 11/08/16) PT DENIES ketorolac (Verified Allergy, Unknown, ITCHING, 11/08/16) tramadol (Unverified Allergy, Unknown, hives, 11/07/16) Reported Meds & Prescriptions Reported Meds & Active Scripts Active No Active Prescriptions or Reported Medications Review of Systems Except as stated in HPI: all other systems reviewed are Neg General / Constitutional: No: Fever Eyes: No: Visual changes HENT: No: Headaches Cardiovascular: No: Chest Pain or Discomfort Respiratory: No: Shortness of Breath Gastrointestinal: Positive: Nausea, Vomiting, Abdominal Pain, No: Diarrhea, Hematemesis, Hematochezia, Changes in Bowel Habits, Indigestion, Loss of Appetite Genitourinary: No: Dysuria Musculoskeletal: No: Pain Skin: No Rash Neurologic: No: Weakness Psychiatric: No: Depression Endocrine: No: Polydipsia Hematologic/Lymphatic: No: Easy Bruising Physical Exam Narrative General: The patient is a well-developed well-nourished female, uncomfortable appearing on initial arrival related to right upper quadrant abdominal pain. Head and Neck exam: Head is normocephalic atraumatic. Eyes: EOMI, pupils are equal round and reactive to light. Nose: Midline septum with pink mucous membranes Mouth: Dentition unremarkable. Moist mucus membranes. Posterior oropharynx is not erythematous. No tonsillar hypertrophy. Uvula midline. Airway patent. Neck: No palpable lymphadenopathy. No nuchal rigidity. No thyromegaly. Cardiovascular: Sinus tachycardia in the 1 teen without murmurs, gallops, or rubs. No pulse deficit to the extremities and simultaneous auscultation and palpation of her radial artery. Lungs: Clear to auscultation bilaterally. No wheezes, rhonchi, or rales. Abdomen: Soft, with tenderness on palpation of the right upper quadrant of the abdomen, no other tenderness on palpation of the other quadrants. No guarding, rebound, or rigidity. Positive Ovalles sign. Normal bowel sounds are audible. No tenderness on palpation of McBurney's point. Extremities: No clubbing, cyanosis, or edema. 2+ pulses in all 4 extremities. No calf tenderness on palpation. Back: No spinous process tenderness to palpation. No costovertebral angle tenderness to palpation. Neurologic Exam: Grossly nonfocal. Skin Exam: No rash noted. Intact skin that is warm and dry. Data Data Last Documented VS Vital Signs Date Time Temp Pulse Resp B/P Pulse Ox O2 Delivery O2 Flow Rate FiO2 11/08/16 06:00 22 11/08/16 05:56 97.8 94 156/87 100 Orders Complete Blood Count With Diff (11/08/16 06:09) Comprehensive Metabolic Panel (11/08/16 06:09) Lipase (11/08/16 06:09) Urinalysis - C+S If Indicated (11/08/16 06:09) Iv Access Insert/Monitor (11/08/16 06:09) Ecg Monitoring (11/08/16 06:09) Oximetry (11/08/16 06:09) Sodium Chlor 0.9% 1000 Ml Inj (Ns 1000 M (11/08/16 06:09) Sodium Chloride 0.9% Flush (Ns Flush) (11/08/16 06:15) Ed Urine Pregnancytest Poc (11/08/16 06:09) Us Abdomen Gallbladder (11/08/16 06:09) Hydromorphone Pf Inj (Dilaudid Pf Inj) (11/08/16 06:15) Metoclopramide Inj (Reglan Inj) (11/08/16 06:15) MDM Medical Decision Making Medical Screen Exam Complete: Yes Emergency Medical Condition: Yes Medical Record Reviewed: Yes Differential Diagnosis Acute cholecystitis, versus gallstone related pancreatitis, versus pyelonephritis Narrative Course During the course of the patients emergency department visit, the patients history, examination, and differential diagnosis were reviewed with the patient. The patient had IV access obtained and blood work sent for analysis. The patient's was on a cardiac cath lab technologist with oximetry and blood pressure monitoring. The patient was initially provided normal saline 1 L IV fluid bolus, hydromorphone 0.5 mg IV, Reglan 5 mg IV. The patients laboratory studies were reviewed and remarkable for a white count of 8.8, hemoglobin 11.2, platelets 327 with a normal differential, CMP is pending An ultrasound is pending at the conclusion of my shift. The patient's case will be checked out to the oncoming emergency physician to disposition the patient based on the conclusion of her workup. The patient reports that this time that if surgery is necessary she would be agreeable with that plan. Diagnosis Primary Impression: Abdominal pain Qualified Code: R10.11 - Right upper quadrant abdominal pain Scripts No Active Prescriptions or Reported Meds Izabel Fung MD Nov 08, 2016 06:52
[2016-11-08 07:05] LABS: ALKALINE PHOSPHATASE 98 U/L (45-117); TOTAL BILIRUBIN ADULT 0.3 MG/DL (0.2-1.0)
[2016-11-08 07:08] LABS: ALT (GPT) 23 U/L (10-53); ANION GAP 9 MEQ/L (5-15); AST (GOT) 43 U/L (15-37); BLOOD UREA NITROGEN 10 MG/DL (7-18); CHLORIDE 108 MEQ/L (98-107); GLOMERULAR FILTRATION RATE 88 ML/MIN (>89); SODIUM (NA) 140 MEQ/L (136-145)
[2016-11-08 07:11] LABS: POTASSIUM 5.1 MEQ/L (3.5-5.1)
[2016-11-08 08:16] LABS: BLOOD, URINE NEG (NEG); GLUCOSE,URINE NEG (NEG); KETONE, URINE NEG (NEG); NITRITE,URINE NEG (NEG); SQUAMOUS EPITHELIAL CELL URINE 1 /hpf (0-5); URINE COLOR YELLOW (YELLW/STRAW)
[2016-11-08 08:18] LABS: COMMENT (UR) CULT NOT INDICATED; CULTURE IF INDICATED CULT NOT INDICATED
--- NOTE | 2016-11-08 09:19 | RADRPT ---
EXAM DATE/TIME: 11/08/2016 08:02 [facility] COMPARISON: US ABDOMEN - GALLBLADDER, October 19, 2016, 15:25. INDICATIONS : Right upper quadrant pain. History of abnormal gallbladder seen on multiple prior studies. MEDICAL HISTORY : Cholelithiasis. Renal failure. Gastrointestinal disorder. SURGICAL HISTORY : section. Tubal ligation. ERCP. ENCOUNTER: [facility] ACUITY: 1 month PAIN SCORE: 7/10 LOCATION: Right upper quadrant MEASUREMENTS: LIVER: 16.6 cm length COMMON DUCT: 5 mm RIGHT KIDNEY: 11.1 x 5.8 x 4.6 cm FINDINGS: LIVER: Normal echotexture without focal lesion or ductal dilatation. COMMON DUCT: No intraluminal mass or stone visualized. GALLBLADDER: Gallbladder remains abnormal in appearance. The gallbladder is contracted with thickened wall measuri ng up to 7 mm in multiple echogenic gallstones. There is no pericholecystic fluid. There is a negativ e sonographic Ovalles's sign. PANCREAS: The visualized portions are within normal limits. RIGHT KIDNEY: No evidence of hydronephrosis, stone, or mass. CONCLUSION: The gallbladder remains abnormal in appearance and is contracted with gallstones and wall thickening. There is no evidence of biliary obstruction. Ryan Krishnamurthy MD on November 08, 2016 at 9:15 Board Certified Radiologist. This report was verified electronically.
[2016-11-08] MEDS ORDERED: TRAM-388 PO (09:41)
--- NOTE | 2016-11-08 09:41 | PD ---
Physical Exam Date Seen by Provider: Nov 08, 2016 Time Seen by Provider: 07:00 Narrative Case is signed out to me by Dr. Fung, please see previous notes for further details. She is here intermittently for chronic abdominal pain with nausea and vomiting and has been diagnosed previously with cholecystitis. An ultrasound has been enter for her for further evaluation and it reveals signs of gallbladder thickening, seen previously. It appears that she has some chronic cholecystitis. Patient has been seen by Dr. Ji in the past and states that she wants to get a mandatory follow-up with him in order to get this issue dealt with on a elective basis. She does not have any significant leukocytosis and otherwise gallbladder is unchanged, I do not think that this is an acute process currently. Return for any worsening in pain, fevers, vomiting, and as needed. The plan has discussed with the patient and she states understanding. Medical peripheral has been placed for Dr. Ji. Laboratory Tests Test 11/08/16 06:20 Hemoglobin 11.2 GM/DL (11.6-15.3) Hematocrit 34.2 % (35.0-46.0) Mean Corpuscular Volume 74.6 FL (80.0-100.0) Mean Corpuscular Hemoglobin 24.4 PG (27.0-34.0) Chloride Level 108 MEQ/L (98-107) Estimat Glomerular Filtration 88 ML/MIN (>89) Rate Aspartate Amino Transf 43 U/L (15-37) (AST/SGOT) Albumin 3.1 GM/DL (3.4-5.0) Lipase 61 U/L (73-393) Last 24 hours Impressions Gall Bladder Ultrasound 11/08/16 0609 Signed Impressions: Service Date/Time: Tuesday, November 08, 2016 08:02 - CONCLUSION: The gallbladder remains abnormal in appearance and is contracted with gallstones and wall thickening. There is no evidence of biliary obstruction. Ryan Krishnamurthy MD Data Data Last Documented VS Vital Signs Date Time Temp Pulse Resp B/P Pulse Ox O2 Delivery O2 Flow Rate FiO2 11/08/16 06:00 22 11/08/16 05:56 97.8 94 156/87 100 Orders Complete Blood Count With Diff (11/08/16 06:09) Comprehensive Metabolic Panel (11/08/16 06:09) Lipase (11/08/16 06:09) Urinalysis - C+S If Indicated (11/08/16 06:09) Iv Access Insert/Monitor (11/08/16 06:09) Ecg Monitoring (11/08/16 06:09) Oximetry (11/08/16 06:09) Sodium Chlor 0.9% 1000 Ml Inj (Ns 1000 M (11/08/16 06:09) Sodium Chloride 0.9% Flush (Ns Flush) (11/08/16 06:15) Ed Urine Pregnancytest Poc (11/08/16 06:09) Us Abdomen Gallbladder (11/08/16 06:09) Hydromorphone Pf Inj (Dilaudid Pf Inj) (11/08/16 06:15) Metoclopramide Inj (Reglan Inj) (11/08/16 06:15) Mandatory Outpatient Referral (11/08/16 09:37) Labs Laboratory Tests Test 11/08/16 11/08/16 06:20 07:15 White Blood Count 8.8 TH/MM3 Red Blood Count 4.58 MIL/MM3 Hemoglobin 11.2 GM/DL Hematocrit 34.2 % Mean Corpuscular Volume 74.6 FL Mean Corpuscular Hemoglobin 24.4 PG Mean Corpuscular Hemoglobin 32.6 % Concent Red Cell Distribution Width 15.1 % Platelet Count 327 TH/MM3 Mean Platelet Volume 8.1 FL Neutrophils (%) (Auto) 57.8 % Lymphocytes (%) (Auto) 32.1 % Monocytes (%) (Auto) 6.5 % Eosinophils (%) (Auto) 2.8 % Basophils (%) (Auto) 0.8 % Neutrophils # (Auto) 5.1 TH/MM3 Lymphocytes # (Auto) 2.8 TH/MM3 Monocytes # (Auto) 0.6 TH/MM3 Eosinophils # (Auto) 0.2 TH/MM3 Basophils # (Auto) 0.1 TH/MM3 CBC Comment DIFF FINAL Differential Comment Sodium Level 140 MEQ/L Potassium Level 5.1 MEQ/L Chloride Level 108 MEQ/L Carbon Dioxide Level 23.0 MEQ/L Anion Gap 9 MEQ/L Blood Urea Nitrogen 10 MG/DL Creatinine 0.95 MG/DL Estimat Glomerular Filtration 88 ML/MIN Rate Random Glucose 93 MG/DL Calcium Level 8.9 MG/DL Total Bilirubin 0.3 MG/DL Aspartate Amino Transf 43 U/L (AST/SGOT) Alanine Aminotransferase 23 U/L (ALT/SGPT) Alkaline Phosphatase 98 U/L Total Protein 7.2 GM/DL Albumin 3.1 GM/DL Lipase 61 U/L Urine Color YELLOW Urine Turbidity CLEAR Urine pH 6.0 Urine Specific [place] 1.017 Urine Protein TRACE mg/dL Urine Glucose (UA) NEG mg/dL Urine Ketones NEG mg/dL Urine Occult Blood NEG Urine Nitrite NEG Urine Bilirubin NEG Urine Urobilinogen LESS THAN 2.0 MG/DL Urine Leukocyte Esterase NEG Urine RBC 1 /hpf Urine WBC 2 /hpf Urine Squamous Epithelial 1 /hpf Cells Microscopic Urinalysis Comment CULT NOT INDICATED MDM Medical Record Reviewed: Yes Supervised Visit with JORY: No Diagnosis Primary Impression: Abdominal pain Qualified Code: R10.11 - Right upper quadrant abdominal pain Additional Impression: Biliary colic Referrals: Rishi Ji MD Med/Other Pt SpecificInfo: Prescription(s) given Scripts Tramadol-Acetaminophen 37.5-325 mg Tab1 Tab PO Q6H PRN (PAIN) #15 TAB Ref 0 Prov:Serena Abraham MD 11/08/16 Disposition: DISCHARGE HOME Condition: Stable Serena Abraham MD Nov 08, 2016 09:41
[2016-11-08 10:21] VITALS: BP 122/77; PULSE 78; RESP 18; O2SAT 100
[2016-11-08] MEDS ORDERED: HYDR-3533 PO (11:45)
== END 2016-11-08 12:15 | disposition home or self-care (01) ==
LOC: NEPE 05:38
DX: K80.20 Calculus of gallbladder without cholecystitis without obstruction (principal)
CPT/HCPCS: 76705; 80053; 81001; 83690; 84703; 85025; 96361; 96374; 96375; 99285; J1170; J2765; J7030

== ENCOUNTER 2016-11-13 12:29 | Emergency (ER) | payer MEDICAID ==
[~2016-11-13] VITALS: Ht 165.1 cm; Wt 100.0 kg
[~2016-11-13 12:29] MED LIST changes: +HYDR-3533 PO; -PERC7.5T13 PO; -SCOP1PAT2 T-DERMAL; -URSO300C2 PO
[2016-11-13 12:44] VITALS: BP 154/88; PULSE 83; RESP 25; TEMP 97.9; O2SAT 99
--- NOTE | 2016-11-13 12:49 | PD ---
Physical Exam Date Seen by Provider: Nov 13, 2016 Time Seen by Provider: 12:44 Narrative 26 Y/O female with Hx Gallstone for the Past 1.5 years. Now having Biliary Colic pain for the past 1 hours. Patient brought in by EMS. Pain 10/10. No Nausea/Vomiting. Denies Urinary Symptoms. LMP Last week. Patient has had several referrals for surgical consult over the past year. Labs Ordered Vital Signs reviewed. Patient is Stable and Awaiting Bed Placement. [facility] Medical Record Reviewed: Yes Supervised Visit with JORY: Yes Condition: Stable Siva Mota Nov 13, 2016 12:49
[2016-11-13 14:04] LABS: AUTOMATED NEUTROPHIL # 4.1 TH/MM3 (1.8-7.7); BASOPHIL % 0.6 % (0.0-2.0); EOSINOPHIL # 0.3 TH/MM3 (0-0.4); EOSINOPHIL % 4.1 % (0.0-4.0); HEMATOCRIT 31.1 % (35.0-46.0); HEMO FLAGS DIFF FINAL; LYMPH % 35.3 % (9.0-44.0); LYMPHOCYTE # 2.7 TH/MM3 (1.0-4.8); MEAN CELL VOLUME 75.7 FL (80.0-100.0); MEAN CORPUSCULAR HEMOGLOBIN 23.9 PG (27.0-34.0); MEAN CORPUSCULAR HGB CONC 31.6 % (32.0-36.0); MONO % 6.2 % (0.0-8.0); NEUT % 53.8 % (16.0-70.0); PLATELET COUNT 326 TH/MM3 (150-450); RED BLOOD COUNT 4.11 MIL/MM3 (4.00-5.30); RED CELL DISTRIBUTION WIDTH 14.8 % (11.6-17.2); WHITE BLOOD COUNT 7.5 TH/MM3 (4.0-11.0)
[2016-11-13 14:43] LABS: ALT (GPT) 22 U/L (10-53); ANION GAP 9 MEQ/L (5-15); AST (GOT) 19 U/L (15-37); BICARBONATE 25.3 MEQ/L (21.0-32.0); BLOOD UREA NITROGEN 7 MG/DL (7-18); CHLORIDE 108 MEQ/L (98-107); GLOMERULAR FILTRATION RATE 119 ML/MIN (>89); POTASSIUM 3.6 MEQ/L (3.5-5.1); SODIUM (NA) 142 MEQ/L (136-145)
[2016-11-13 14:46] LABS: ALKALINE PHOSPHATASE 88 U/L (45-117); TOTAL BILIRUBIN ADULT 0.2 MG/DL (0.2-1.0)
--- NOTE | 2016-11-13 16:04 | PD ---
HPI Chief Complaint: Abdominal Pain Time Seen by Provider: 15:49 Travel History International Travel<30 days: No Contact w/Intl Traveler<30days: No Traveled to known affect area: No History of Present Illness HPI 26-year-old female presents to the emergency department for evaluation of right upper quadrant abdominal pain that started 11 AM this morning. Patient has history of cholelithiasis. She has been seen multiple times for this. It appears, she was going to have surgery in September, but then she declined the surgery. She has been referred to Dr. Ji outpatient. The patient was here on November 08, 2016. That time, lab work and ultrasound were completed. Ultrasound showed the gallbladder remains abnormal in appearance and is contracted with gallstones and wall thickening. There is no evidence of biliary obstruction. This is unchanged since previous ultrasound. Patient denies any fevers or chills. She states she is nauseated, but denies any vomiting. She denies . She has no other complaints. She has no other chronic medical problems. At first, allergy to morphine was a strong chart. However, she tells me that she can have morphine without difficulty. She states that she is allergic to Toradol, Zofran, tramadol. PFSH Past Medical History Cancer: No Cardiovascular Problems: No Cerebrovascular Accident: No Diminished Hearing: No Endocrine: No Gastrointestinal Disorders: Yes (GALLSTONES) Genitourinary: No Immune Disorder: No Kidney Stones: No Musculoskeletal: No Neurologic: No Psychiatric: No Reproductive: No Respiratory: No Migraines: No Renal Failure: Yes Seizures: No ?: Unknown LMP: 11/08/16 : 4 Para: 5 Tubal Ligation: Yes Past Surgical History Abdominal Surgery: No Cardiac Surgery: No Section: Yes (X3) Ear Surgery: No Endocrine Surgery: No Eye Surgery: No Genitourinary Surgery: No Gynecologic Surgery: Yes ( x 3/tubal ligation) Oral Surgery: No Thoracic Surgery: No Other Surgery: Yes (ERCP) Social History Alcohol Use: No Tobacco Use: No Substance Use: No Allergies-Medications (Allergen,Severity, Reaction): Coded Allergies: ondansetron (Unverified Allergy, Severe, Itching, 11/13/16) PT DENIES ketorolac (Verified Allergy, Unknown, ITCHING, 11/13/16) tramadol (Unverified Allergy, Unknown, hives, 11/13/16) Reported Meds & Prescriptions Reported Meds & Active Scripts Active Lortab (Hydrocodone-Acetaminophen) 5-325 Mg Tab 1 Tab PO Q6H PRN Review of Systems Except as stated in HPI: all other systems reviewed are Neg Physical Exam Narrative GENERAL: Well-nourished, well-developed female patient, ambulatory. Afebrile. SKIN: Focused skin assessment warm/dry. HEAD: Normocephalic. Atraumatic. EYES: No scleral icterus. No injection or drainage. NECK: Supple, trachea midline. No JVD or lymphadenopathy. CARDIOVASCULAR: Regular rate and rhythm without murmurs, gallops, or rubs. RESPIRATORY: Breath sounds equal bilaterally. No accessory muscle use. Lungs sounds are clear to auscultation. GASTROINTESTINAL: Abdomen soft, and nondistended. Patient has tenderness to palpation over the right upper quadrant. MUSCULOSKELETAL: No cyanosis, or edema. BACK: Nontender without obvious deformity. No CVA tenderness. Data Data Last Documented VS Vital Signs Date Time Temp Pulse Resp B/P (MAP) Pulse Ox O2 Delivery O2 Flow Rate FiO2 11/13/16 12:44 97.9 83 25 154/88 (110) 99 Orders Orders Complete Blood Count With Diff (11/13/16 12:49) Comprehensive Metabolic Panel (11/13/16 12:49) Lipase (11/13/16 12:49) Urinalysis - C+S If Indicated (11/13/16 12:49) Ed Urine Pregnancytest Poc (11/13/16 12:49) Morphine Inj (Morphine Inj) (11/13/16 16:15) Metoclopramide Inj (Reglan Inj) (11/13/16 16:15) Morphine Inj (Morphine Inj) (11/13/16 17:30) Labs Laboratory Tests Test 11/13/16 13:45 11/13/16 17:30 White Blood Count 7.5 TH/MM3 Red Blood Count 4.11 MIL/MM3 Hemoglobin 9.8 GM/DL Hematocrit 31.1 % Mean Corpuscular Volume 75.7 FL Mean Corpuscular Hemoglobin 23.9 PG Mean Corpuscular Hemoglobin Concent 31.6 % Red Cell Distribution Width 14.8 % Platelet Count 326 TH/MM3 Mean Platelet Volume 7.4 FL Neutrophils (%) (Auto) 53.8 % Lymphocytes (%) (Auto) 35.3 % Monocytes (%) (Auto) 6.2 % Eosinophils (%) (Auto) 4.1 % Basophils (%) (Auto) 0.6 % Neutrophils # (Auto) 4.1 TH/MM3 Lymphocytes # (Auto) 2.7 TH/MM3 Monocytes # (Auto) 0.5 TH/MM3 Eosinophils # (Auto) 0.3 TH/MM3 Basophils # (Auto) 0.0 TH/MM3 CBC Comment DIFF FINAL Differential Comment Blood Urea Nitrogen 7 MG/DL Creatinine 0.73 MG/DL Random Glucose 84 MG/DL Total Protein 6.8 GM/DL Albumin 3.2 GM/DL Calcium Level 8.8 MG/DL Alkaline Phosphatase 88 U/L Aspartate Amino Transf (AST/SGOT) 19 U/L Alanine Aminotransferase (ALT/SGPT) 22 U/L Total Bilirubin 0.2 MG/DL Sodium Level 142 MEQ/L Potassium Level 3.6 MEQ/L Chloride Level 108 MEQ/L Carbon Dioxide Level 25.3 MEQ/L Anion Gap 9 MEQ/L Estimat Glomerular Filtration Rate 119 ML/MIN Lipase 67 U/L Urine Color YELLOW Urine Turbidity CLEAR Urine pH 7.5 Urine Specific [place] 1.016 Urine Protein NEG mg/dL Urine Glucose (UA) NEG mg/dL Urine Ketones NEG mg/dL Urine Occult Blood NEG Urine Nitrite NEG Urine Bilirubin NEG Urine Urobilinogen LESS THAN 2.0 MG/DL Urine Leukocyte Esterase NEG Urine WBC 1 /hpf Urine Squamous Epithelial Cells 2 /hpf Urine Mucus FEW /lpf Microscopic Urinalysis Comment CULT NOT INDICATED MDM Medical Decision Making Medical Screen Exam Complete: Yes Emergency Medical Condition: Yes Medical Record Reviewed: Yes Differential Diagnosis Cholelithiasis versus cholecystitis versus chronic abdominal pain Narrative Course 26-year-old female presents to the emergency department for right upper quadrant abdominal pain that started 11 AM today. Patient has history of cholelithiasis. She was just seen recently on November 08, 2016 ultrasound completed which showed the gallbladder remains abnormal in appearance and is contracted with gallstones and wall thickening. There is no evidence of biliary obstruction. Patient had no fevers or chills. Lab work was ordered in triage. CBC shows no acute abnormality with WBC of 7.5. CMP shows no acute abnormality with normal LFTs. Lipase is 62. UA and urine test are ordered and pending. Patient is given morphine 4 mg IV and Reglan 10 mg IV. I discussed the case by attending physician, Dr. Samaniego, who agrees with plan and disposition. The patient's cholelithiasis is a chronic problem and she has no fever or WBC count. There is no acute process ongoing at this time. UA is negative for acute infection. test is negative. I discussed the case with my oncoming attending physician, Dr. Oh, who agrees on plan and disposition. Patient will be discharged with a limited amount of Lortab. She is to follow up with a general surgeon. She is to return for any acute, worsening of symptoms including fevers, intractable pain. The patient was discharged in stable condition with instructions, including return instructions and follow up instructions. Diagnosis Primary Impression: Cholelithiasis Qualified Codes: K80.20 - Calculus of gallbladder without cholecystitis without obstruction Referrals: General Surgeon call for appointment Patient Instructions: Gallstones (ED), General Instructions Additional Instructions: Follow up with a general surgeon. Return to the emergency department for any acute, worsening of symptoms. Med/Other Pt SpecificInfo: Prescription(s) given Scripts Hydrocodone-Acetaminophen (Lortab) 5-325 Mg Tab 1 TAB PO Q6H Y for PAIN, #7 TAB 0 Refills Prov: Nahum Samaniego MD 11/13/16 Disposition: 01 DISCHARGE HOME Condition: Stable AngeloGauri Nov 13, 2016 16:04
[2016-11-13] MEDS ORDERED: METOCLOPRAMIDE HCL 10 MG/2 ML VIAL IV PUSH ONE (16:15)
[2016-11-13] MEDS ORDERED: MORPHINE SULFATE 4 MG/ML INJ IV PUSH ONE ×2 (16:15→17:30)
[2016-11-13 17:55] LABS: BLOOD, URINE NEG (NEG); COMMENT (UR) CULT NOT INDICATED; CULTURE IF INDICATED CULT NOT INDICATED; GLUCOSE,URINE NEG (NEG); KETONE, URINE NEG (NEG); MUCUS URINE FEW /lpf (OCC); NITRITE,URINE NEG (NEG); PH, URINE 7.5 (5.0-8.5); SQUAMOUS EPITHELIAL CELL URINE 2 /hpf (0-5); URINE COLOR YELLOW (YELLW/STRAW)
[2016-11-13] MEDS ORDERED: HYDR-3533 PO (18:12)
[2016-11-13] MEDS ORDERED: ACETAMINOPHEN/HYDROcodone 325 MG/5 MG TAB PO ONE (18:30)
== END 2016-11-13 18:33 | disposition home or self-care (01) ==
LOC: NEPD 12:29
DX: K80.20 Calculus of gallbladder without cholecystitis without obstruction (principal)
CPT/HCPCS: 80053; 81001; 83690; 84703; 85025; 96374; 96375; 96376; 99284; J2270; J2765

== ENCOUNTER 2017-06-10 08:39 | Emergency (ER) | payer MEDICAID ==
[~2017-06-10] VITALS: Ht 165.1 cm; Wt 100.0 kg
[2017-06-10 08:44] VITALS: BP 126/72; PULSE 86; RESP 17; TEMP 97.6; O2SAT 99
--- NOTE | 2017-06-10 09:46 | PD ---
HPI Chief Complaint: Oral / Dental Pain or Problem Time Seen by Provider: 09:44 Travel History International Travel<30 days: No Contact w/Intl Traveler<30days: No Traveled to known affect area: No History of Present Illness HPI Patient took EMS to come over to the emergency department for dental pain Listed allergies to Toradol, Ultram, and Zofran Past medical history significant for 3, bilateral tubal ligation, gallstone PFSH Past Medical History Cancer: No Cardiovascular Problems: No Cerebrovascular Accident: No Diminished Hearing: No Endocrine: No Gastrointestinal Disorders: Yes (GALLSTONES) Genitourinary: No Immune Disorder: No Kidney Stones: No Musculoskeletal: No Neurologic: No Psychiatric: No Reproductive: No Respiratory: No Migraines: No Renal Failure: Yes Seizures: No ?: Not : 4 Para: 5 Tubal Ligation: Yes Past Surgical History Abdominal Surgery: No Cardiac Surgery: No Section: Yes (X3) Ear Surgery: No Endocrine Surgery: No Eye Surgery: No Genitourinary Surgery: No Gynecologic Surgery: Yes ( x 3/tubal ligation) Oral Surgery: No Thoracic Surgery: No Other Surgery: Yes (ERCP) Social History Alcohol Use: No Tobacco Use: No Substance Use: No Allergies-Medications (Allergen,Severity, Reaction): Coded Allergies: ondansetron (Unverified Allergy, Severe, Itching, 11/13/16) PT DENIES ketorolac (Verified Allergy, Unknown, ITCHING, 11/13/16) tramadol (Unverified Allergy, Unknown, hives, 11/13/16) Reported Meds & Prescriptions Reported Meds & Active Scripts Active Lortab (Hydrocodone-Acetaminophen) 5-325 Mg Tab 1 Tab PO Q6H PRN Review of Systems Except as stated in HPI: all other systems reviewed are Neg General / Constitutional: No: Fever Eyes: No: Visual changes HENT: Positive: Dental Difficulties Cardiovascular: No: Chest Pain or Discomfort Respiratory: No: Shortness of Breath Gastrointestinal: No: Abdominal Pain Genitourinary: No: Dysuria Musculoskeletal: No: Pain Skin: No Rash Neurologic: No: Weakness Psychiatric: No: Depression Endocrine: No: Polydipsia Hematologic/Lymphatic: No: Easy Bruising Physical Exam Narrative GENERAL: SKIN: Warm and dry. HEAD: Atraumatic. Normocephalic. EYES: Pupils equal and round. No scleral icterus. No injection or drainage. ENT: No nasal bleeding or discharge. Mucous membranes pink and moist. left mandibular molar #2 with pericoronitis NECK: Trachea midline. No JVD. CARDIOVASCULAR: Regular rate and rhythm. RESPIRATORY: No accessory muscle use. Clear to auscultation. Breath sounds equal bilaterally. GASTROINTESTINAL: Abdomen soft, non-tender, nondistended. Hepatic and splenic margins not palpable. MUSCULOSKELETAL: Extremities without clubbing, cyanosis, or edema. No obvious deformities. NEUROLOGICAL: Awake and alert. No obvious cranial nerve deficits. Motor grossly within normal limits. Five out of 5 muscle strength in the arms and legs. Normal speech. PSYCHIATRIC: Appropriate mood and affect; insight and judgment normal. Data Data Last Documented VS Vital Signs Date Time Temp Pulse Resp B/P (MAP) Pulse Ox O2 Delivery O2 Flow Rate FiO2 06/10/17 08:44 97.6 86 17 126/72 (90) 99 MDM Medical Decision Making Medical Screen Exam Complete: Yes Emergency Medical Condition: Yes Medical Record Reviewed: Yes Differential Diagnosis dental abscess v dental caries v facial extension Narrative Course Clinically the patient had a left mandibular molar to paracoronal cellulitis without abscess without lymphadenopathy advised to follow-up with dentist will give p.o. antibiotics and NSAIDs Diagnosis Primary Impression: Toothache Patient Instructions: General Instructions, Toothache (ED) Scripts Ketorolac (Ketorolac) 10 Mg Tab 10 MG PO TID for Pain Management, #12 TAB 0 Refills Prov: Nahum Samaniego MD 06/10/17 Penicillin V Potassium (Penicillin V Potassium) 500 Mg Tab 500 MG PO Q8H for Infection for 7 Days, #21 TAB 0 Refills Prov: Nahum Samaniego MD 06/10/17 Disposition: 01 DISCHARGE HOME Condition: Stable Nahum Samaniego MD Jun 10, 2017 09:46
[2017-06-10] MEDS ORDERED: KETO10 PO (09:54)
[2017-06-10] MEDS ORDERED: PENI500T PO (09:54)
[2017-06-10] MEDS ORDERED: PENICILLIN V POTASSIUM 500 MG TAB PO ONE (10:15)
[2017-06-10] MEDS ORDERED: KETOROLAC TROMETHAMINE 10 MG TAB PO ONE (10:15)
[2017-06-10 10:52] VITALS: BP 118/72
== END 2017-06-10 10:54 | disposition home or self-care (01) ==
LOC: NEPD 08:39
DX: K08.89 Other specified disorders of teeth and supporting structures (principal)
CPT/HCPCS: 99283